=== PATIENT | male | born 1955 | race Caucasian/White ===

== ENCOUNTER 2024-01-30 09:49 | Outpatient (REF) | payer MEDICARE, SELFPAY ==
[2024-01-30 11:29] LABS: MANUAL DIFF FLAG NO
[2024-01-30 11:38] LABS: Appearance Urine Clear; Color Urine Yellow; Glucose Urine UA Negative (Negative); Leukocyte Esterase Urine Negative (Negative); Nitrite Urine Negative (Negative); Specific Gravity - Urine 1.025 (1.005-1.025); Urine Blood Negative (Negative); Urine Ketones Trace mg/dL (Negative); Urine Protein Trace mg/dL (Neg-Trace)
[2024-01-30 11:56] LABS: Basophils Percent Auto 0.6 % (0-2); Eosinophils Absolute Auto 0.1 X10*3/uL (0.0-0.4); Eosinophils Percent Auto 1.5 % (0-4); Hematocrit 48.5 % (42.0-52.0); Hemoglobin 16.3 g/dl (14.0-18.0); Imm Gran Abs Auto 0.03 X10*3/uL (0.00-0.03); Imm Gran Pct Auto 0.5 % (0.0-0.4); Lymphocytes Absolute Auto 1.9 X10*3/uL (1.2-4.9); Lymphocytes Percent Auto 30.3 % (20-40); Mean Corpuscular HGB Conc 33.6 g/dl (31.0-36.0); Mean Corpuscular Hemoglobin 30.8 pg (27.0-33.0); Mean Corpuscular Volume 91.7 fL (80.0-98.0); Mean Platelet Volume 9.9 fL (9.4-12.4); Monocytes Absolute Auto 0.6 X10*3/uL (0.1-1.2); Neutrophils Absolute Auto 3.5 x10*3/uL (2.0-8.3); Neutrophils Percent Auto 57.1 % (45-73); Platelet Count 258 X10*3/uL (160-400); Red Blood Count 5.29 X10*6/uL (4.60-5.80); Red Cell Distribution Width 13.6 % (11.0-16.0); White Blood Count 6.2 X10*3/uL (4.8-10.8)
[2024-01-30 12:10] LABS: Alanine Aminotransferase 18 U/L (0-40); Albumin Level 4.5 g/dL (3.5-5.0); Alkaline Phosphatase 73 U/L (39-117); Anion Gap 13 (12-20); Aspartate Amino Transferase 16 U/L (5-37); Bilirubin Direct 0.1 mg/dL (0.0-0.5); Bilirubin Total 0.4 mg/dL (0.0-1.0); Blood Urea Nitrogen 12 mg/dL (9-16); Calcium 9.2 mg/dL (8.4-10.2); Carbon Dioxide 27 mmol/L (22-29); Chloride 108 mmol/L (96-108); Cholesterol 246 mg/dL (<200); Estimated Glomerular Filt Rate > 60; Glucose Fasting 102 mg/dL (60-99); HDL Cholesterol 38 mg/dL (>40); LDL Cholesterol Calculated 147 mg/dL (<100); Potassium 4.7 mmol/L (3.3-5.1); Sodium 143 mmol/L (135-145); Total Protein 7.5 g/dL (6.5-8.0); Triglycerides 308 mg/dL (<150)
[2024-01-30 12:37] LABS: Erythrocyte Sedimentation Rate 7 MM/HR (0-15)
[2024-01-30 12:49] LABS: Folate 11.3 ng/mL (> or = 4.0); Prostate Specific Antigen Scr 0.67 ng/mL (<0.05-4.0); Vitamin B12 311 pg/mL (200-900)
== END 2024-01-30 09:50 | disposition home or self-care (01) ==
LOC: HO.CHCLDS 09:49
PROVIDERS: Visit Provider Pediatrics
DX: Z23 Encounter for immunization (principal); R03.0 Elevated blood-pressure reading, without diagnosis of hypertension; E66.3 Overweight; Z12.5 Encounter for screening for malignant neoplasm of prostate
CPT/HCPCS: 36415; 80048; 80061; 80076; 81003; 82607; 82746; 84153; 85025; 85652

== ENCOUNTER 2024-02-05 14:57 | Outpatient (REF) | payer MEDICARE, SELFPAY ==
--- NOTE | ~2024-02-05 | XR_ITS ---
EXAMINATION: XR SHOULDER, RIGHT CLINICAL INFORMATION: Right shoulder pain. COMPARISON: None available. TECHNIQUE: AP external rotation, Grashey, scapular Y, and axillary views of the right shoulder. FINDINGS: Glenohumeral and acromioclavicular alignment is anatomic. Glenohumeral joint space is maintained. Hypertrophic changes of the acromioclavicular joint. Moderate subacromial joint space narrowing. No displaced fracture or dislocation. No abnormal soft tissue calcifications. XR/XR shoulder RT min 2V IMPRESSION: Hypertrophic changes of the acromioclavicular joint. Moderate subacromial joint space narrowing. Electronically signed by: Alpesh Ha MD 02/29/2024 01:49 PM EST
== END 2024-02-05 14:58 | disposition home or self-care (01) ==
LOC: HO.XRAY 14:57
PROVIDERS: PCP Pediatrics; Visit Provider Pediatrics
DX: M25.511 Pain in right shoulder (principal); G89.29 Other chronic pain
CPT/HCPCS: 73030

== ENCOUNTER 2024-04-04 10:07 | Outpatient (AMB) | payer MEDICARE, SELFPAY ==
--- NOTE | 2024-04-04 07:43 | A.OFFVIS_ITS ---
Intake Visit Reasons: Current Smoker HPI HPI Current Smoker: Details: Initial visit for this 68yo smoker with a 50PYH. Patient started smoking at age 18 for 50 years at 1ppd. . Denies marijuana use. Denies second hand smoke exposure. Denies exposure to chemicals or substances like asbestos. . Denies known family history of lung cancer. Denies personal history of cancers. Denies chest CT in last year. . Denies recent travel outside the [place]. Denies recent respiratory illness or recent hospitalization for respiratory issues. Denies testing positive for COVID. Admits receiving COVID Vaccine. . Denies fever, chills, new/worsening cough, hemoptysis, hoarseness or dysphagia. Denies significant chest pain, significant dyspnea or unintentional weight loss. Patient Lung Cancer Screening Questionnaire reviewed with patient by provider. . Shared Decision Making Completed. Patient meets criteria. Discussed in detail with patient, the risk vs benefit of LDCT screening. Patient consents to proceed with scan. Discussed smoking cessation. [facility] Medical History (Updated 04/04/24 @ 10:27 by Marley Epstein PA-C) Chronic right shoulder pain Hyperlipidemia (~2023) Elevated blood pressure reading without diagnosis of hypertension (~2023) Nicotine dependence, cigarettes, uncomplicated Surgical History (Updated 04/04/24 @ 10:22 by Marley Epstein PA-C) History of nasal septoplasty Social History (Updated 04/04/24 @ 10:27 by Marley Epstein PA-C) Alcohol intake: current Alcohol intake frequency: a few times a week Patient Tobacco Use Status: Current everyday Tobacco user Cigarette Packs Per Day: 1 Years Smoked: (onset 18yo, 1ppd x 50yrs, 50pyh) Assessment & Plan Assessment & Plan (1) Nicotine dependence, cigarettes, uncomplicated: Comment: (onset 18yo, 1ppd x 50yrs, 50pyh) Code(s): F17.210 - Nicotine dependence, cigarettes, uncomplicated Category: Medical Plan: - SDM visit completed today in office. - Patient meets criteria for LDCT for lung cancer screening purposes and is asymptomatic. - Smoking cessation counseling offered. Patients can always call [phone]. - Will arrange for a LDCT scan of the chest for screening purposes at [facility]. - Risks, benefits, and alternatives were discussed in detail and the patient agrees to proceed. - Risks discussed include but are not limited to: radiation exposure, anxiety during testing and while awaiting results, false negatives, false positives and possibility of additional intervention such as further imaging or surgical procedures for benign disease. - Benefits are obviously detection of lung cancer at an early stage which can lead to improved outcomes. - Discussed the importance of screening program compliance with adherence to yearly LDCT scan as scheduled - or sooner interval scans for personalized screening regimen. - Discussed follow up plan. Our office will send a letter discussing results and if needed set up phone call and office visit based on CT findings. - Patient educated on results categorization and the management decisions for suspicious findings potentially found on the screening LDCT scan. Any patient with a Lung RADS score of 3 or 4 will be reviewed by a multidisciplinary team at [facility] to form a plan of action in regards to scan findings. - If further work up is warranted for a suspicious lung finding this will be followed by the Lung Cancer Screening program in conjunction with the Thoracic Surgery Department at [facility]. - A copy of the office note and LDCT will be sent to the patient's PCP - as well as documentation on any associated further plans of care. - Incidental findings on LDCT are the PCP's responsibility. These findings are indicated with an S finding on the LDCT Assessment. A note discussing the findings will be sent to the PCP who is then responsible for further management. - All questions answered.? Coding Level of Care Code Lung Cancer Screening G0296 Diagnoses Nicotine dependence, cigarettes, uncomplicated F17.210
== END 2024-04-04 10:39 | disposition home or self-care (01) ==
PROVIDERS: PCP Pediatrics; Visit Provider Physician Assistant Medical
DX: F17.210 Nicotine dependence, cigarettes, uncomplicated (principal)
CPT/HCPCS: G0296

== ENCOUNTER 2024-04-04 10:28 | Outpatient (REF) | payer MEDICARE, SELFPAY | END 2024-04-04 10:29 | disposition home or self-care (01) | LOC: HO.CT 10:28 | PROVIDERS: PCP Pediatrics; Visit Provider Physician Assistant Medical | DX: Z12.2 Encounter for screening for malignant neoplasm of respiratory organs (principal); F17.210 Nicotine dependence, cigarettes, uncomplicated | CPT/HCPCS: 71271; G0296 ==

== ENCOUNTER → 2024-04-04 10:30 | Outpatient (BNV) | payer MEDICARE, SELFPAY | PROVIDERS: PCP Pediatrics; Visit Provider Radiology Diagnostic Radiology | DX: F17.210 Nicotine dependence, cigarettes, uncomplicated (principal) | CPT/HCPCS: 71271 ==

== ENCOUNTER 2024-06-06 09:49 | Outpatient (REF) | payer MEDICARE, SELFPAY ==
--- OUTSIDE RECORDS SUMMARY | 2024-06-06 10:22 | XMS_ITS | Encounter Summary ---
Author Organization [employer] Address [address] [place] [address] Care Team Providers Care Metal Spraying Machine Operator Name Role Phone Estela Ng MD Primary Care Provider [phone] Encounter Details Date Type Department Care Team (Late st Contact Info) Description 04/04/2024 Orders Only [facility] External Provider, [facility] Social History Tobacco Use Types Packs/Day Years Used Date Smoking Tobacco: Every Day Cigarettes Passive Smoke Exposure: Current Smokeless Tobacco: Never Alcohol Answer Date Recorded Frequency of Alcohol Consumption Not on file 01/30/2024 Average Number of Drinks Not on file 024 Frequency of Binge Drinking Not on file 12/2023 Score 0 01/30/2024 Depression Answer Date Recorded Patient Health Questionnaire-9 Score 0 01/30/2024 Patient Health Questionnaire-9 Score 0 01/30/2024 Last PHQ-9: Questionnaire Data Not on file 1 Housing Stability Answer Date Recorded What is your housing situation today? I have zenon perkins 01/30/[address] you li ve. Do you have problems with any of the following? None of the above 01/30/2024 Food Insecurity Answer Date Recorded Within the past 12 months, y ou worried that your food would run out before you got money to buy more: Never True 01/30/2024 Within the past 12 months,th e food you bought just didn't last and you didn't have enough money to get more: Never True 12/2023 Transportation Answer Date Recorded In the past 12 months, has l ack of transportation kept you from medical appts, meetings, work or from getting things needed for daily living? No 01/30/2024 Utilities Answer Date Recorded In the past 12 months, has t he electric, gas, oil or water company threatened to shut off services in your home? No 01/30/2024 Depression Answer Date Recorded Patient Health Questionnaire-2 Score 0 01/30/2024 Internet Access Answer Date Recorded Internet Access Q1 Yes 01/30/2024 Internet Access Q2 Not on file 01/30/2024 Sex and Gender Information Value Date Recorded Sex Assigned at Male 02/20/2022 10:37 AM EDT Legal Sex Male 10:37 AM EDT Gender Identity Male 02/20/2022 10:37 AM EDT Sexual Orientation Straight 02/20/2022 10 :37 AM EDT documented as of this encounter Plan of Treatment Not on file documented as of this encounter Procedures Procedure Name Priority Date/Time Associated Diagnosis Comments LDCT LUNG SCREENING Routine 04/04/2024 1 0:35 AM EST documented in this encounter Results * CT Lung Screening Low dose (04/04/2024 10:35 AM EST) Anatomical Region Laterality Modality Lung Computed Tomogra phy 04/04/2024 10:3 5 AM EST Narrative 05/20/2024 11:09 AM EST ? [facility] ?[address] ?[place] [address] ? CT Scan Report ? Signed ? Patient: BuenoMoise ?MR#: [id number] ?? [id number] ? : 1955 ?Acct:[id number] ? Age/Sex: 68 / M ?ADM Date: 04/04/24 ? Loc: HO.CT ? Attending Dr: Marley Epstein PA-C ? Ordering Physician: Marley Epstein PA-C ?? Date of Service: 04/04/24 ?? Procedure(s): CT lung screening ?? Accession Number(s): [id number] ? cc: Estela Ng MD; Marley Epstein PA-C ? Report Number: ?? [id number]: Total DLP = ?? 52.00 mGy-cm ?? EXAMINATION: ?? CT LOW-DOSE SCREENING CHEST WITHOUT CONTRAST ? CLINICAL INFORMATION: ?? Nicotine dependence, cigarettes, uncomplicated. The patient is a ?? current smoker with a 52 pack-year history of smoking. ? COMPARISON: ?? CT chest 10/20/2020. ? TECHNIQUE: ?? Multidetector volumetric CT imaging of the chest is performed on a ?? Siemens SOMATOM Definition scanner without contrast using low dose ?? technique. Additional 2D coronal and sagittal reformatted images and ?? axial 3D maximum intensity projection (MIP) images are generated on the ?? CT workstation. ? This CT examination was performed using dose optimization techniques as ?? appropriate, variously including the following: ?? *Automated exposure control ?? *Adjustment of mA and/or kV according to patient size (this includes ?? techniques or standardized protocols for targeted exams where dose is ?? matched to indication/reason for exam; i.e. extremities or head) ?? *Use of iterative reconstruction technique ? TOTAL EXAM DLP: ?? 52 mGy-cm. ? CTDIvol: ?? 1.53 mGy. ? FINDINGS: ? PULMONARY NODULES: There is 2 mm calcified nodule right upper lobe on ?? axial image 114/6. No additional nodules are seen. ? LUNGS: There is mild scarring atelectasis in the lingula, right middle ?? lobe and left lung base. ? MEDIASTINUM: Thyroid lobes are symmetric and normal. The central ?? tracheal and bronchial airway are widely patent. Heart size and the ?? great vessels are normal caliber. No pericardial effusion seen. No ?? abnormal lymph nodes seen. ? CORONARY ARTERY CALCIFICATION: None visualized on this study. ? THYROID GLAND: Unremarkable to the extent seen. ? CARDIOVASCULAR STRUCTURES: Aortic and heart size normal. No pericardial ?? effusion. ? CHEST WALL/AXILLA: Unremarkable. ? UPPER ABDOMEN: Visualized liver, spleen, pancreas and bilateral adrenal ?? glands are unremarkable. ? OSSEOUS STRUCTURES: No aggressive lytic or sclerotic process seen. Mild ?? ventral spondylosis. ? CT/CT lung screening ?? IMPRESSION: ?? Able right upper lobe nodule. The other nodule described on the ?? previous CT is not seen at this time. There are no new nodules ?? visualized.. ? ASSESSMENT: ?? 1. Lung-RADS Category 2, benign ? 2. Lung-RADS Category S: None ? RECOMMENDATION: ?? Low-dose annual CT chest ? Electronically signed by: ??Brandon Phelps MD ??05/20/2024 11:06 AM EST RP ? Dictated By: ?Brandon Phelps MD ? Signed By: ?<Electronically signed by Brandon Phelps MD in OV> ?05/20/24 1106 ? DD/ 1035 ? TD/TT: 04/04/24 1109 ? Toppiece Cutter: MSM ? Procedure Note Donotchelsiinterpreter, Image - 05/20/[address] [place] [id number] [address] Scan Report Signed Patient: Moise Bueno#: [id number] : 8Acct:[id number] Age/Sex: 68 / MADM Date: 04/04/24 Loc: HO.CT Attending Dr: Marley Epstein PA-C Ordering Physician: Marley Epstein PA-C Date of Service: 04/04/24 Procedure(s): CT lung screening Accession Number(s): [id number] cc: Estela Ng MD; aMrley Epstein PA-C Report Number: [id number]: Total DLP = 52.00 mGy-cm EXAMINATION: CT LOW-DOSE SCREENING CHEST WITHOUT CONTRAST CLINICAL INFORMATION: Nicotine dependence, cigarettes, uncomplicated. The patient is a current smoker with a 52 pack-year history of smoking. COMPARISON: CT chest 10/20/2020. TECHNIQUE: Multidetector volumetric CT imaging of the chest is performed on a Siemens SOMATOM Definition scanner without contrast using low dose technique. Additional 2D coronal and sagittal reformatted images and axial 3D maximum intensity projection (MIP) images are generated on the CT workstation. This CT examination was performed using dose optimization techniques as appropriate, variously including the following: *Automated exposure control *Adjustment of mA and/or kV according to patient size (this includes techniques or standardized protocols for targeted exams where dose is matched to indication/reason for exam; i.e. extremities or head) *Use of iterative reconstruction technique TOTAL EXAM DLP: 52 mGy-cm. CTDIvol: 1.53 mGy. FINDINGS: PULMONARY NODULES: There is 2 mm calcified nodule right upper lobe on axial image 114/6. No additional nodules are seen. LUNGS: There is mild scarring atelectasis in the lingula, right middle lobe and left lung base. MEDIASTINUM: Thyroid lobes are symmetric and normal. The central tracheal and bronchial airway are widely patent. Heart size and the great vessels are normal caliber. No pericardial effusion seen. No abnormal lymph nodes seen. CORONARY ARTERY CALCIFICATION: None visualized on this study. THYROID GLAND: Unremarkable to the extent seen. CARDIOVASCULAR STRUCTURES: Aortic and heart size normal. No pericardial effusion. CHEST WALL/AXILLA: Unremarkable. UPPER ABDOMEN: Visualized liver, spleen, pancreas and bilateral adrenal glands are unremarkable. OSSEOUS STRUCTURES: No aggressive lytic or sclerotic process seen. Mild ventral spondylosis. CT/CT lung screening IMPRESSION: Able right upper lobe nodule. The other nodule described on the previous CT is not seen at this time. There are no new nodules visualized.. ASSESSMENT: 1. Lung-RADS Category 2, benign 2. Lung-RADS Category S: None RECOMMENDATION: Low-dose annual CT chest Electronically signed by: Brandon Phelps MD 05/20/2024 11:06 AM [facility] Dictated By: Brandon Phelps MD Signed By: <Electronically signed by Brandon Phelps MD in OV> 05/20/24 1106 DD/ 1035 TD/TT: 04/04/24 1109 Toppiece Cutter: [facility] External Provider IMG CT PROCEDURES Final Result documented in this encounter Visit Diagnoses Not on filedocumented in this encounter Additional Health Concerns Assessment Noted Time PHQ-9 Depression Total Score: 0 01/30/20 24 9:27 AM EDT documented as of this encounter Care Teams Metal Spraying Machine Operator Relationship Specialty Start Date End Date Estela Ng MD [address] [place] [address] PCP - General Internal Medicine 01/30/24 documented as of this encounter
--- OUTSIDE RECORDS SUMMARY | 2024-06-06 10:22 | XMS_ITS | Clinical Summary ---
Author Organization [employer] Address [address] [facility] 7[address] [place] [address] Care Team Providers Care Physician Scientist Name Role Phone Estela Ng MD Primary Care Provider [phone] Allergies No known active allergies Medications atorvastatin (Lipitor) 40 MG tabletIndication s:Dyslipidemia with high LDL and low HDL Take 1 tablet (40 mg) by mouth Once per day. 30 tablet 11 02/01/2024 5 Active Active Problems Problem Noted Date Diagnosed Date Chronic right shoulder pain 01/30/2024 Overview (01/30/2024): DJD vs rotator cuff injury.Check labs and CXR today.Declines PT referral today. Tobacco dependence syndrome 03/08/2006 Encounters Date Type Department Care Team Description 04/04/2024 Orders Only [facility] External Provider, [facility] from Last 3 Months Immunizations Name Administration Dates Next Due [facility] SARS-CoV-2 Vaccination 07/14/2020 Pneumococcal Conjugate PCV 20 01/30/2024 Tdap 01/15/2021 Zoster, Recombinant 11/15/2020,09/15/2020 Social History Tobacco Use Types Packs/Day Years Used Date Smoking Tobacco: Every Day Cigarettes Passive Smoke Exposure: Current Smokeless Tobacco: Never Tobacco Cessation:Ready to Q uit: Not Asked; Counseling Given: Not Answered Alcohol Answer Date Recorded Frequency of Alcohol [...] Orientation Straight 02/20/2022 10 :37 AM EDT Last Filed Vital Signs Vital Sign Reading Time Taken Comments Blood Pressure 140/70 01/30/2024 9:15 AM EDT Pulse 100 01/30/2024 8:54 AM EDT Temperature 36.2 ??C (97.1 ??F) 01/30/2024 8:54 AM ED T Respiratory Rate 20 01/30/2024 8:54 AM EDT Oxygen Saturation 98% 01/30/2024 8:54 AM EDT Inhaled Oxygen Concentration - - Weight 85.3 kg (188 lb) 01/30/2024 8:54 AM EDT Height 174.6 cm (5' 8.75 ) 01/30/2024 8:54 AM ED T Body Mass Index 27.97 01/30/2024 8:54 AM EDT Plan of Treatment Health Maintenance Due Date Last Done Comments CT Colonography 1955 Colonoscopy 1955 FIT 1957 FOBT 1955 Sigmoidoscopy 1955 Hepatitis A Vaccines (1 of 2 - Risk 2-dose series) 1976 COVID-19 Vaccine (2 - 2023-2 5 season) 2023 07/14/2020 Influenza Vaccine (#1) 2023 Alcohol/Substance Use Screening 01/29/2025 01/30/2024 Depression Screening 01/29/2025 01/30/2024, 01/30/2024 SDOH Screening 01/29/2025 01/30/2024 Tobacco Screening 01/29/2025 01/30/2024 Colorectal Cancer Screening 02/10/2027 FIT DNA/Cologuard 02/10/2027 02/11/2024 Lipid Panel 01/29/2029 01/30/2024, 07/26/2020 DTaP/Tdap/Td Vaccines (2 - T d or Tdap) 01/15/2031 01/15/2021 RSV Patients and Patients Aged 60 years or older (1 - 1-dose 75+ series) 2032 Hepatitis C Screening Completed 07/26/2020 Zoster Vaccines Completed 11/15/2020, 09/15/2020 Pneumococcal Vaccine: 50+ Years Completed 01/30/2024 HIB Vaccines Aged Out No longer eligi ble based on patient's age to complete this topic HPV Vaccines Aged Out No longer eligi ble based on patient's age to complete this topic Hepatitis B Vaccines Aged Out No long er eligible based on patient's age to complete this topic IPV Vaccines Aged Out No longer eligi ble based on patient's age to complete this topic Meningococcal Vaccine Aged Out No alexus mague eligible based on patient's age to complete this topic RSV under 20 months Aged Out No longe r eligible based on patient's age to complete this topic Rotavirus Vaccines Aged Out No longer eligible based on patient's age to complete this topic Procedures Procedure Name Priority Date/Time Associated Diagnosis Comments LDCT LUNG SCREENING Routine 04/04/2024 1 0:35 AM EST LAB COLOGUARD?? COLON CANCER SCREEN Routine 02/11/2024 8:25 AM EDT Encounter for immunization Elevated BP without diagnosis of hypertension Colon cancer screening LIPID PANEL, STANDARD Routine 01/30/2024 9:56 AM EDT Encounter for immunization Elevated BP without diagnosis of hypertension Overweight (BMI 25.0-29.9) ZZZ HISTORICAL HEPATITIS C AB W/REFL TO HCV RNA, QN, PCR Routine 07/26/2020 8:32 AM EDT from Last 3 Months or Most Recently Relevant to Health Maintenance Results * CT Lung Screening Low dose (04/04/2024 10:35 AM EST) Anatomical Region Laterality Modality Lung Computed Tomogra phy 04/04/2024 10:3 5 AM EST Narrative 05/20/2024 11:09 AM EST ? [facility] ?[address] ?[place] [address] ? CT Scan Report ? Signed ? Patient: Moise Bueno ?MR#: [id number] ?? [id number] ? : 1955 ?Acct:[id number] ? Age/Sex: 68 / M ?ADM Date: 04/04/24 ? Loc: HO.CT ? Attending Dr: Marley Epstein PA-C ? Ordering Physician: Marley Epstein PA-C ?? Date of Service: 04/04/24 ?? Procedure(s): CT lung screening ?? Accession Number(s): [id number] ? cc: Estela Ng MD; Marley Epstein PA-C ? Report Number: ?? [id number]: Total DLP = ?? 52.00 mGy-cm ?? [...] DD/ 1035 ? TD/TT: 04/04/24 1109 ? [place]: MSM ? Procedure Note Donotuseinterpreter, Image - 05/20/[address] [address] [address] Scan Report Signed Patient: Moise Bueno AMR#: [id number] : 1955cct:[id number] Age/Sex: 68 / MADM Date: 04/04/24 Loc: HO.CT Attending Dr: Marley Epstein PA-C Ordering Physician: Marley Epstein PA-C Date of Service: 04/04/24 Procedure(s): CT lung screening Accession Number(s): [id number] cc: Estela Ng MD; Marley Epstein PA-C Report Number: [id number]: Total DLP = 52.00 mGy-cm EXAMINATION: CT [...] by: Brandon Phelps MD 05/20/2024 11:06 AM [facility] Dictated By: Brandon Phelps MD Signed By: <Electronically signed by Brandon Phelps MD in OV> 05/20/24 1106 DD/ 1035 TD/TT: 04/04/24 1109 [place]: [facility] External Provider IMG CT PROCEDURES Final Result * (ABNORMAL) Cologuard?? colon cancer screening (02/11/2024 8:25 AM EDT) Cologuard Result Positive( A) Negative 02/20/2024 5:33 AM EDT [facility] (CLIA #:[id number]) Comment: POSITIVE TEST RESULT. A positive Cologuard result should be followed with a colonoscopy or visual examination of the colon. The normal value (reference range) for this assay is negative. TEST DESCRIPTION: Composite algorithmic analysis of stool DNA-biomarkers with hemoglobin immunoassay. ?? Quantitative values of individual biomarkers are not reportable and are not associated with individual biomarker result reference ranges. Cologuard is intended for colorectal cancer screening of adults of either sex, 45 years or older, who are at average-risk for colorectal cancer (CRC). Cologuard has been approved for use by the U.S. FDA. The performance of Cologuard was established in a cross sectional study of average-risk adults aged 50-84. Cologuard performance in patients ages 45 to 49 years was estimated by sub-group analysis of near-age groups. Colonoscopies performed for a positive result may find as the most clinically significant lesion: colorectal cancer [4.0%], advanced adenoma (including sessile serrated polyps greater than or equal to 1cm diameter) [20%] or non- advanced adenoma [31%]; or no colorectal neoplasia [45%]. These estimates are derived from a prospective cross-sectional screening study of 10,000 individuals at average risk for colorectal cancer who were screened with both Cologuard and colonoscopy. (Dorothy Hogan al, N Engl J Med 2014;370(14):2527-8213.) Cologuard may produce a false negative or false positive result (no colorectal cancer or precancerous polyp present at colonoscopy follow up). A negative Cologuard test result does not guarantee the absence of CRC or advanced adenoma (pre-cancer). The current Cologuard screening interval is every 3 years. ([place] [employer] Society and U.S. Multi-Society Task Force). Cologuard performance data in a 10,000 patient pivotal study using colonoscopy as the reference method can be accessed at the following location: www.[employer]/results. Additional description of the Cologuard test process, warnings and precautions can be found at www.[employer].com. Stool specimen (specimen) 02/11/2024 8:25 AM EDT 02/12/2024 1:14 PM EDT us Estela Ng MD LAB MOLECULAR DIAGNOSTICS ORD ERABLES Final Result [facility] (CLIA #:[id number]) [place] [address], * (ABNORMAL) Lipid Panel, Standard (01/30/2024 9:56 AM EDT) Triglycerides 308(H) <150 mg/dL [facility] Comment:Desirable Triglyceri de: less than 150 mg/dLBorderline High Triglyceride 150-199 mg/dLHigh Triglyceride: 200-499 mg/dLVery High Triglyceride: greater than or equal to 5OO mg/dL Cholesterol 246(H) <200 mg/dL [facility] Comment:Desirable Cholestero l: less than 200 mg/dLBorderline High Cholesterol: 200-239 mg/dLHigh Cholesterol: greater than 239 mg/dL LDL Cholesterol Calculated 147(H) <100 mg/dL [facility] Comment:Desirable LDL: less than 100 mg/dLNear Optimal/Above Optimal LDL: 110- 129 mg/dLBorderline High LDL: 130-159 mg/dLHigh LDL: 160-189 mg/dLVery High LDL: greater than or equal to 190 mg/dL HDL Cholesterol 38(L) >40 mg/dL [facility] Comment:Desirable HDL: great er than 40 mg/dL Note: This HDL assay may give artificially low results in patients with liver disease. Blood Venous blood specimen / Unknown 01/30/2024 9:56 AM EDT 01/30/2024 11:25 AM EDT Estela Ng MD LAB BLOOD ORDERABLES Final Re sult [facility] [address] [place] [phone] * HEPATITIS C AB W/REFL TO HCV RNA, QN, PCR (07/26/2020 8:32 AM EDT) HEPATITIS C ANTIBODY NON-REACT JEFF NON-REACT JEFF [facility] INDEX 0.02 <1.00 [facility] Comment: ?? HCV antibody was non-reactive. There is no laboratory ?? evidence of HCV infection. ?? In most cases, no further action is required. However, if recent HCV exposure is suspected, a test for HCV RNA (test code 86856) is suggested. ?? For additional information please refer to http://education.[employer]/faq/FVI34d0 (This link is being provided for informational/ educational purposes only.) ?? 07/26/2020 8:32 AM EDT Estela Ng MD HISTORICAL/NON ORDERABLE LABS Final Result [facility] [address] from Last 3 Months or Most Recently Relevant to Health Maintenance Insurance MEDICARE Member Subscriber Plan / Payer ( fective 2022-Present) Name:Moise Bueno Member ID:[id number] Relation to Subscriber:Self Name:Moise Bueno Subscriber ID:[id number] Payer ID:STATE Group ID:Not on file Type:Medicare Address: [facility] [address] [address] [id number] MED[facility] Care Teams Physician Scientist Relationship Specialty Start Date End Date Estela Ng MD [address] [place] [phone] PCP - General Internal Medicine 01/30/24
[2024-06-06 14:39] LABS: Cholesterol 153 mg/dL (<200); HDL Cholesterol 38 mg/dL (>40); LDL Cholesterol Calculated 76 mg/dL (<100); Triglycerides 199 mg/dL (<150)
== END 2024-06-06 09:50 | disposition home or self-care (01) ==
LOC: HO.CHCLDS 09:49
PROVIDERS: Visit Provider Pediatrics
DX: E78.5 Hyperlipidemia, unspecified (principal)
CPT/HCPCS: 36415; 80061; 82550

== ENCOUNTER 2025-04-22 10:00 | Outpatient (REF) | payer MEDICARE, SELFPAY ==
--- NOTE | ~2025-04-22 | CT_ITS ---
EXAMINATION: CT LUNG SCREENING HISTORY: F17.210 - Nicotine dependence, cigarettes, uncomplicated TECHNIQUE: Low dose axial images were obtained from the sternal notch to upper abdomen without IV contrast per standard departmental protocol. Sagittal and coronal reformatted images were also obtained and reviewed. One or more of the following techniques was used for dose reduction: Automated exposure control, adjustment of the mA and/or kV according to patient size, use of iterative reconstruction technique. DLP: 57 mGy-cm COMPARISON: Comparison is made with the prior examination dated 04/04/2024. FINDINGS: Lung nodules: Again seen is a calcified granuloma in the right upper lobe (series 5, image 33). There is a 2 mm nodule in the left upper lobe (series 5, image 55). No suspicious pulmonary nodules are identified. Emphysema: none Coronary Calcification: mild Aortic Arch Calcification: mild Potentially Significant Incidentals : none Additional Chest Findings: There is no pleural or pericardial effusion. No mediastinal or axillary lymphadenopathy is identified. Visualized upper abdomen: The visualized portions of the liver, spleen, and adrenals have an unremarkable unenhanced appearance. CT/CT lung screening IMPRESSION: No suspicious pulmonary nodules are identified. LUNG-RADS ASSESSMENT: Lung-RADS 2: Benign MANAGEMENT: Continue annual screening with LDCT in 12 months Category S: N/A Electronically signed by: Moise Gar MD 04/22/2025 11:34 AM [facility]
--- OUTSIDE RECORDS SUMMARY | 2025-04-22 10:59 | XMS_ITS | Clinical Summary ---
Author Organization [facility] Address [address] [facility] [facility] [address] [place] [address] Phone Care Team Providers Care Auto Body Builder Apprentice Name Role Phone Estela Ng MD Primary Care Provider [phone] Allergies No known active allergies Medications atorvastatin (LIPITOR) 40 MG tablet Take 40 mg by mouth nightly at bedtime. Active Active Problems Problem Noted Date Diagnosed Date Syncope 10/05/2024 Assessment & Plan (10/05/2024 8:38 AM EDT): Syncope x 2 in the setting of acute alcohol intoxication, with vague history of prior episodes not involving active alcohol use. -Monitor on telemetry overnight -EKG showing sinus tachycardia is reassuring -Echo in the morning - LR at 100 cc an hour -Check orthostatics - Consider MCOT at discharge Hyperlipidemia 10/05/2024 Assessment & Plan (10/05/2024 8:37 AM EDT): - Continue atorvastatin Left shoulder pain 10/05/2024 Assessment & Plan (10/05/2024 8:37 AM EDT): - Not concerning for cardiac pain. EKG and troponins unremarkable. -Check shoulder films and chest x-ray Alcohol use disorder 10/05/2024 Assessment & Plan (10/05/2024 8:37 AM EDT): - Acutely intoxicated; drinks once weekly for the purpose of getting drunk. Had 6 beers and 4 shots last night. Slowly sobering up. No history of alcohol withdrawal syndrome. - Will hydrate with LR - Abstinence counseling when sober Tobacco use disorder 10/05/2024 Assessment & Plan (10/05/2024 8:37 AM EDT): NRT provided Abstinence counseling when sober Family History Medical History Relation Comments Other Cancer Father Heart disease Mother Other Cancer Mother Relation Status Comments Father Mother Social History Tobacco Use Types Packs/Day Years Used Date Smoking Tobacco: Every Day Cigarettes 1 51 Started: 1972 Tobacco Cessation:Ready to Q uit: No; Counseling Given: Not Answered Alcohol Use Standard Drinks/Week Comments Yes 10 (1 standard drink = 0.6 oz pure alcohol) up to 10 drinks at a time weekly Education Answer Date Recorded Are you interested in more education? Not on lindsay e 10/05/2024 Are you concerned about learning? Not on file 10/05/2024 No 10/05/2024 No 10/05/2024 Food Answer Date Recorded Within the past 6 months we worried whether our food would run out before we got money to buy more. Never True 10/05/2024 Within the past 6 months the food we bought just didn't last and we didn't have enough money to get more. Never True Residential Stability Answer Date Recor ded What is your housing situation today? I have zenon sing 10/05/2024 How many times have you move d in the past 12 months? Zero (I did not move) 10/05/2024 Paying for Meds Answer Date Recorded Do you have trouble paying for medicines? No 10/05/2024 Paying Utility Bills Answer Date Record ed Do you have trouble paying your heating or elect ricity bill? No 10/05/2024 Transportation Answer Date Recorded Has the lack of transportati on kept you from medical appointments or from getting medications? No 10/05/2024 Digital Access Answer Date Recorded No 10/05/2024 Yes 10/05/2024 Do you have reliable internet access at home? Ye s 10/05/2024 Do you have a device (e.g., phone, tablet, computer) with a working camera? Yes 10/05/2024 Intimate Partner Violence Answer Date R ecorded Are you denied basic needs s uch as food, clothing, or medical care? No 10/05/2024 In the past 12 months have y ou been in a relationship with a person who hurts, threatens, or tries to control you? No 10/05/2024 Are you denied basic needs s uch as food, clothing, or medical care? No 10/05/2024 In the past 12 months have y ou been in a relationship with a person who hurts, threatens, or tries to control you? No 10/05/2024 Sex and Gender Information Value Date Recorded Sex Assigned at Male 10/05/2024 2:49 AM EDT Legal Sex Male 2:47 AM EDT Gender Identity Male 10/05/2024 2:49 AM EDT Sexual Orientation Straight 10/05/2024 2: 59 AM EDT Last Filed Vital Signs Vital Sign Reading Time Taken Comments Blood Pressure 132/74 10/06/2024 8:15 AM EDT Pulse 92 10/06/2024 8:15 AM EDT Temperature 37 C (98.6 F) 10/06/2024 8:15 AM EDT Respiratory Rate 16 10/06/2024 8:15 AM EDT Oxygen Saturation 95% 10/06/2024 8:15 AM EDT Inhaled Oxygen Concentration - - Weight 87.7 kg (193 lb 6.4 oz) 10/05/2024 10:16 AM EDT Height 177.8 cm (5' 10 ) 10/05/2024 10:16 AM EDT Body Mass Index 27.75 10/05/2024 10:16 AM EDT Plan of Treatment Health Maintenance Due Date Last Done Comments DEPRESSION SCREENING 1969 HEPATITIS C SCREENING 11/20/1975 PNEUMOCOCCAL VACCINES (50+ y ears) (1 of 2 - PCV) 1976 COLOGUARD 2002 COLONOSCOPY 2002 COLORECTAL CANCER SCREENING 2002 FIT TEST 2002 FOBT 2002 SIGMOIDOSCOPY 2002 VIRTUAL COLONOSCOPY 2002 LUNG CANCER SCREENING (LDCT Only) 11/20/2007 ZOSTER VACCINES (1 of 2) 11/20/2007 ABDOMINAL AORTIC ANEURYSM (A AA) SCREENING 2022 INFLUENZA VACCINE (#1) 2024 COVID-19 VACCINE (1 - 2024-2 6 season) 2024 SMOKING Hx and SMOKELESS TOB ACCO SCREENING 10/05/2025 10/05/2024 SCREENING FOR DIABETES 10/07/2027 10/06/2024 LIPID PANEL 06/06/2029 06/06/2024 Adult Td,Tdap Booster 01/15/2031 01/15/2021 RSV VACCINE (1 - 1-dose 75+ series) 2032 HEPATITIS A VACCINES Aged Out No long er eligible based on patient's age to complete this topic HIB VACCINES Aged Out No longer eligi ble based on patient's age to complete this topic MENINGOCOCCAL VACCINES (ACWY) Aged Out No longer eligible based on patient's age to complete this topic MENINGOCOCCAL VACCINES (B) Aged Out N o longer eligible based on patient's age to complete this topic Medical Devices Not on file Insurance MEDICARE PART A & B [facility] MEDEX SUPPLEMENT [facility] Address: [facility] [id number] [place] [address] MEDICARE PART A & B [employer] MEDEX SUPPLEMENT MEDICARE PART A & B [employer] MEDEX SUPPLEMENT MEDICARE PART A & B [employer] MEDEX SUPPLEMENT MEDICARE PART A & B [employer] MEDEX SUPPLEMENT MEDICARE PART A & B [employer] MEDEX SUPPLEMENT Advance Directives For more information, please contact: [phone] (9AM - 5PM [facility], Sunday-Sunday) * Full Code (Latest Code Status on File) Date Activated Date Inactivated Comments 10/05/2024 8:15 AM Question Answer Comments Code Status Confirmed With: Patient Care Teams Auto Body Builder Apprentice Relationship Specialty Start Date End Date Estela Ng MD [address] [place] [phone] PCP - General Internal Medicine 10/05/24 Additional Source Comments The information contained in this document represents components of the legal health record. It is not the complete legal health record.[facility]
--- OUTSIDE RECORDS SUMMARY | 2025-04-22 10:59 | XMS_ITS | Encounter Summary ---
Author Organization [facility] Address [address] [place] [address] Phone Care Team Providers Care Organ Assembler Name Role Phone Estela Ng MD Primary Care Provider [phone] Encounter Details Date Type Department Care Team (Late st Contact Info) Description 10/05/2024 Procedure Pass [facility], Ct Scan - [address] [address] Social History Tobacco Use Types Packs/Day Years Used Date Smoking Tobacco: Every Day Cigarettes 1 51 Started: 1972 Alcohol Use Standard Drinks/Week Comments Yes 10 [...] Orientation Straight 10/05/2024 2: 59 AM EDT documented as of this encounter Plan of Treatment Not on file documented as of this encounter Visit Diagnoses Not on filedocumented in this encounter Care Teams Organ Assembler Relationship Specialty Start Date End Date Estela Ng MD [address] [place] [phone] PCP - General Internal Medicine 10/05/24 documented as of this encounter Additional Source Comments The information contained in this document represents components of the legal health record. It is not the complete legal health record.[facility]
--- OUTSIDE RECORDS SUMMARY | 2025-04-22 10:59 | XMS_ITS | Encounter Summary ---
Author Organization [facility] Address [address] [place] [address] Phone Care Team Providers Care Steam And Power Superintendent Name Role Phone Estela Ng MD Primary Care Provider [phone] Encounter Details Date Type Department Care Team (Late st Contact Info) Description 10/05/2024 Procedure Pass [facility] [address] [place] [address] Social History Tobacco Use Types Packs/Day Years [...] on filedocumented in this encounter Care Teams Steam And Power Superintendent Relationship Specialty Start Date End Date Estela Ng MD [address] [place] [phone] PCP - General Internal Medicine 10/05/24 documented as of this encounter Additional Source Comments The information contained in this document represents components of the legal health record. It is not the complete legal health record.[facility]
--- OUTSIDE RECORDS SUMMARY | 2025-04-22 10:59 | XMS_ITS | Clinical Summary ---
Author Organization [employer] Address [address] [facility] 7t [place] [address] Care Team Providers Care Family And Marriage Counsellor Name Role Phone Estela Ng MD Primary Care Provider [phone] Allergies No known active allergies Medications nicotine (Nicoderm, Step 1) 21 MG/24HR patch Place 1 patch on the skin 1 (one) time each day at the same time. 30 patch 1 12/18/2024 Active atorvastatin (Lipitor) 40 MG tabletIndication s:Dyslipidemia with high LDL and low HDL TAKE 1 TABLET (40 MG) BY MOUTH ONCE PER DAY. 90 tablet 3 03/11/2025 Active Active Problems Problem Noted Date Diagnosed Date Syncope 10/05/2024 Chronic right shoulder pain 01/30/2024 Overview (01/30/2024): DJD vs rotator cuff injury.Check labs and CXR today.Declines PT referral today. Tobacco dependence syndrome 03/08/2006 Encounters Date Type Department Care Team Description 03/11/2025 Refill [facility] MED & PEDS [address] [place] [address] Estela Ng MD Dyslipidemia with high LDL and low HDL 02/27/2025 Orders Only [facility] MED & PEDS [address] [place] [address] ProviderJada MD from Last 3 Months Immunizations Immunization Administration Dates Next Due Usman SARS-CoV-2 Vaccination 07/14/2020 Pneumococcal Conjugate PCV 20 [...] your housing situation today? I have zenon maddie 01/30/[address] you li [...] Sign Reading Time Taken Comments Blood Pressure 135/78 12/18/2024 11:46 AM EDT Pulse 80 12/18/2024 11:46 AM EDT Temperature 36.8 C (98.3 F) 12/18/2024 11:46 AM EDT Respiratory Rate 16 12/18/2024 11:46 AM EDT Oxygen Saturation 98% 10/23/2024 10:33 AM EDT Inhaled Oxygen Concentration - - Weight 85.7 kg (189 lb) 12/18/2024 11:46 AM EDT Height 172.7 cm (5' 8 ) 10/23/2024 10:33 AM EDT Body Mass Index 28.74 10/23/2024 10:33 AM EDT Plan of Treatment Health Maintenance Due Date Last Done Comments CT Colonography 1957 FIT 1957 Sigmoidoscopy 1957 Alcohol/Substance Use Screening 1969 COVID-19 Vaccine (2 - 2024-2 6 season) 2024 07/14/2020 Influenza Vaccine (#1) 2024 Depression Screening 01/29/2025 01/30/2024, 01/30/2024 SDOH Screening 01/29/2025 01/30/2024 FOBT 02/10/2025 02/11/2024 Tobacco Screening 12/18/2025 12/18/2024 FIT DNA/Cologuard 02/10/2027 02/11/2024 Lipid Panel 06/06/2029 06/06/2024, 01/30/2024, 07/26/2020 DTaP/Tdap/Td Vaccines (2 - T d or Tdap) 01/15/2031 01/15/2021 RSV Patients and Patients Aged 60 years or older (1 - 1-dose 75+ series) 2032 Colonoscopy 01/28/2035 01/28/2025 Colorectal Cancer Screening 01/28/2035 Hepatitis C Screening Completed 07/26/2020 Zoster Vaccines Completed 11/15/2020, 09/15/2020 Pneumococcal Vaccine: 50+ Years Completed 01/30/2024 HIB Vaccines Aged Out No longer eligi ble based on patient's age to complete this topic HPV Vaccines Aged Out No longer eligi ble based on patient's age to complete this topic Hepatitis A Vaccines Aged Out No long er eligible based on patient's age to complete this topic Hepatitis B Vaccines Aged Out No long er eligible based on patient's age to complete this topic IPV Vaccines Aged Out No longer eligi ble based on patient's age to complete this topic Meningococcal B Vaccine Aged Out No l onger eligible based on patient's age to complete [...] Procedure Name Priority Date/Time Associated Diagnosis Comments COLONOSCOPY Routine 01/28/2025 LIPID PANEL, STANDARD Routine 06/06/2024 9:52 AM EST Dyslipidemia with high LDL and low HDL LAB COLOGUARD COLON CANCER SCREEN Routine 02/11/2024 8:25 AM EDT Encounter for immunization Elevated BP without diagnosis of hypertension Colon cancer screening ZZZ HISTORICAL HEPATITIS C AB W/REFL TO HCV RNA, QN, PCR Routine 07/26/2020 8:32 AM EDT from Last 3 Months or Most Recently Relevant to Health Maintenance Results * (ABNORMAL) Colonoscopy (01/28/2025) Colonoscopy Abnormal(A ) Normal Narrative Estela Ng MD - 01/28/2025 Internal and external hemmorhoids, 2 polyps benign looking removed, biopsy of stomach taken, erythemata of stomach , small hiatal hernia present, moderate diverticulosis, needs repeat in 3 years us Estela Ng MD HEALTH MAINTENANCE Final Resu lt * (ABNORMAL) Lipid Panel, Standard (06/06/2024 9:52 AM EST) Triglycerides 199(H) <150 mg/dL [facility] Comment:Desirable Triglyceri de: less than 150 mg/dLBorderline High Triglyceride 150-199 mg/dLHigh Triglyceride: 200-499 mg/dLVery High Triglyceride: greater than or equal to 5OO mg/dL Cholesterol 153 <200 mg/dL [facility] Comment:Desirable Cholestero l: less than 200 mg/dLBorderline High Cholesterol: 200-239 mg/dLHigh Cholesterol: greater than 239 mg/dL LDL Cholesterol Calculated 76 <100 mg/dL [facility] Comment:Desirable LDL: less than 100 mg/dLNear Optimal/Above Optimal LDL: 110- 129 mg/dLBorderline High LDL: 130-159 mg/dLHigh LDL: 160-189 mg/dLVery High LDL: greater than or equal to 190 mg/dL HDL Cholesterol 38(L) >40 mg/dL [facility] Comment:Desirable HDL: great er than 40 mg/dL Note: This HDL assay may give artificially low results in patients with liver disease. Blood Venous blood specimen / Unknown 06/06/2024 9:52 AM EST 06/06/2024 2:12 PM EST us Estela Ng MD LAB BLOOD ORDERABLES Final Re sult [facility] [address] [place] [phone] * (ABNORMAL) Cologuard?? colon cancer screening (02/11/2024 8:25 AM EDT) Cologuard Result Positive( A) Negative 02/20/2024 5:33 AM EDT [employer] (CLIA #:[id number]) Comment: POSITIVE TEST RESULT. A positive Cologuard result should be followed with a colonoscopy or visual examination of the colon. The normal value (reference range) for this assay is negative. TEST DESCRIPTION: Composite algorithmic analysis of stool DNA-biomarkers with hemoglobin immunoassay. Quantitative values of individual biomarkers are not [...] screened with both Cologuard and colonoscopy. (Dorothy Pond et al, N Engl J Med 2014;370(14):3930-0740.) Cologuard may produce a false negative or false positive result (no colorectal cancer or precancerous polyp present at colonoscopy follow up). A negative Cologuard test result does not guarantee the absence of CRC or advanced adenoma (pre-cancer). The current Cologuard screening interval is every 3 years. ([place] [employer] and U.S. Multi-Society Task Force). Cologuard performance data in a 10,000 patient pivotal study using colonoscopy as the reference method can be accessed at the following location: www.[employer]/results. Additional description of the Cologuard test process, warnings and precautions can be found at www.[employer]. Stool specimen (specimen) 02/11/2024 8:25 AM EDT 02/12/2024 1:14 PM EDT Estela Ng MD LAB MOLECULAR DIAGNOSTICS ORD ERABLES Final Result [employer] (CLIA #:[id number]) [place] [address], * HEPATITIS C AB W/REFL TO HCV RNA, QN, PCR (07/26/2020 8:32 AM EDT) HEPATITIS C ANTIBODY NON-REACT JEFF NON-REACT JEFF [facility] INDEX 0.02 <1.00 [facility] Comment: HCV antibody was non-reactive. There is no laboratory evidence of HCV infection. In most cases, no further action is required. However, if recent HCV exposure is suspected, a test for HCV RNA (test code 79473) is suggested. For additional information please refer to http://education.[employer]/faq/EMY06a7 (This link is being provided for informational/ educational purposes only.) 07/26/2020 8:32 AM EDT us Estela Ng MD HISTORICAL/NON ORDERABLE LABS Final Result Performing Organization Address City/State/[facility] Co de Phone Number [facility] Critical access hospital Anywhere [address] from Last 3 Months or Most Recently Relevant to Health Maintenance Insurance MEDICARE Member Subscriber Plan / Payer (Ef fective 2022-Present) Name:Moise Bueno Member ID:[id number] Relation to Subscriber:Self Name:Moise Bueno Subscriber ID:[id number] Payer ID:STATE Group ID:Not on file Type:Medicare Address: [facility] [address] [address] [facility] MEDEX MEDICARE SUPPLEMENT Care Teams Family And Marriage Counsellor Relationship Specialty Start Date End Date Estela Ng MD [address] [place] [address] PCP - General Internal Medicine 01/30/24
--- OUTSIDE RECORDS SUMMARY | 2025-04-22 10:59 | XMS_ITS | Encounter Summary ---
Author Organization [employer] Address [address] [facility] [address] 7[address] [place] [address] Care Team Providers Care Material Control Clerk Name Role Phone Estela Ng MD Primary Care Provider [phone] Encounter Details Date Type Department Care Team ([facility] st Contact Info) Description 02/27/2025 Orders Only [facility] MED & PEDS [address] [place], [place] [id number] ProviderJada MD Social History Tobacco Use Types Packs/Day Years [...] Procedure Name Priority Date/Time Associated Diagnosis Comments PULMONARY FUNCTION TESTING Routine 11/12/2024 4:12 PM EDT documented in this encounter Results * Pulmonary function testing (11/12/2024 4:12 PM EDT) us Historical Provider PFT ORDERABLES Final Res ult documented in this encounter Visit Diagnoses Not on filedocumented in this encounter Additional Health Concerns Assessment Noted Time PHQ-9 Depression Total Score: 0 01/30/20 9:27 AM EDT documented as of this encounter Care Teams Material Control Clerk Relationship Specialty Start Date End Date Estela Ng MD [address] [place] [address] PCP - General Internal Medicine 01/30/24 documented as of this encounter
--- OUTSIDE RECORDS SUMMARY | 2025-04-22 10:59 | XMS_ITS | Encounter Summary ---
Author Organization [facility] Address [address] [place] [address] Phone Care Team Providers Care Night Shift Supervisor Name Role Phone Estela Ng MD Primary Care Provider [phone] Encounter Details Date Type Department Care Team (Late st Contact Info) Description 10/05/2024 Procedure Pass [facility], Ct Scan - [address] [address] Social History Tobacco Use Types Packs/Day Years [...] on filedocumented in this encounter Care Teams Night Shift Supervisor Relationship Specialty Start Date End Date Estela Ng MD [address] [place] [id number] PCP - General Internal Medicine 10/05/24 documented as of this encounter Additional Source Comments The information contained in this document represents components of the legal health record. It is not the complete legal health record.[facility]
--- OUTSIDE RECORDS SUMMARY | 2025-04-22 10:59 | XMS_ITS | Encounter Summary ---
Author Organization [employer] Address [address] [facility] [address] [place] [address] Care Team Providers Care Mission Assessment Specialist Name Role Phone Estela Ng MD Primary Care Provider [phone] Encounter Details Date Type Department Care Team ([facility] st Contact Info) Description 10/06/2024 Orders Only [facility] MED & PEDS [address] [place], [place] [id number] ProviderJada MD Social History Tobacco Use Types [...] Procedure Name Priority Date/Time Associated Diagnosis Comments CBC Routine 10/06/2024 10:06 AM EDT BASIC METABOLIC PANEL Routine 10/06/2024 10:06 AM EDT documented in this encounter Results * CBC (10/06/2024 10:06 AM EDT) Blood Venous blood specimen / Unknown Historical Provider LAB BLOOD ORDERABLES Deepti l Result * Basic Metabolic Panel (10/06/2024 10:06 AM EDT) Blood Venous blood specimen / Unknown us Historical Provider LAB BLOOD ORDERABLES Deepti l Result documented in this encounter Visit Diagnoses Not on filedocumented in this encounter Additional Health Concerns Assessment Noted Time PHQ-9 Depression Total Score: 0 01/30/20 9:27 AM EDT documented as of this encounter Care Teams Mission Assessment Specialist Relationship Specialty Start Date End Date Estela Ng MD [address] [place] [id number] PCP - General Internal Medicine 01/30/24 documented as of this encounter
--- OUTSIDE RECORDS SUMMARY | 2025-04-22 10:59 | XMS_ITS | Encounter Summary ---
Author Organization [employer] Address [address] [facility] [address] [place] [address] Care Team Providers Care Skimmer Reverberatory Name Role Phone Estela Ng MD Primary Care Provider [phone] Reason for Visit * Reason Onset Date Comments Lab Orders 12/02/2024 Encounter Details Date Type Department Care Team ([facility] st Contact Info) Description 12/02/2024 Telephone [facility] MED & PEDS [address] [place] [address] Estela Ng MD [address] [place] [address] Lab Orders Social History Tobacco Use Types Packs/Day Years [...] AM EDT documented as of this encounter Miscellaneous Notes * Telephone Encounter - Alex Sears - 12/02/2024 8:33 AM EDT Tc from Rian with with [facility] requesting a CDX Ultrasound order for pt. Any questions contact rian at [phone] Fax number is [phone] documented in this encounter Plan of Treatment Not on file documented as of this encounter Visit Diagnoses Not on filedocumented in this encounter Additional Health Concerns Assessment Noted Time PHQ-9 Depression Total Score: 0 01/30/20 9:27 AM EDT documented as of this encounter Care Teams Skimmer Reverberatory Relationship Specialty Start Date End Date Estela Ng MD [address] [place] [address] PCP - General Internal Medicine 01/30/24 documented as of this encounter
== END 2025-04-22 10:01 | disposition home or self-care (01) ==
LOC: HO.CT 10:00
PROVIDERS: PCP Pediatrics; Visit Provider Physician Assistant Medical
DX: F17.210 Nicotine dependence, cigarettes, uncomplicated (principal)
CPT/HCPCS: 71271

== ENCOUNTER → 2025-04-22 10:01 | Outpatient (BNV) | payer MEDICARE, SELFPAY | PROVIDERS: PCP Pediatrics; Visit Provider Radiology Diagnostic Radiology | DX: F17.210 Nicotine dependence, cigarettes, uncomplicated (principal) | CPT/HCPCS: 71271 ==